=== PATIENT | male | born 1945 | race Caucasian/White ===

== ENCOUNTER → 2016-09-17 | Day surgery (SDC) | payer MEDICARE, OTHER | END | disposition home or self-care (01) | LOC: FAS 07:38 | DX: M23.221 Derangement of posterior horn of medial meniscus due to old tear or injury, right knee (principal); M23.261 Derangement of other lateral meniscus due to old tear or injury, right knee; M25.861 Other specified joint disorders, right knee; M17.11 Unilateral primary osteoarthritis, right knee; M79.4 Hypertrophy of (infrapatellar) fat pad; I10 Essential (primary) hypertension; K21.9 Gastro-esophageal reflux disease without esophagitis; M10.9 Gout, unspecified; Z79.82 Long term (current) use of aspirin; Z79.1 Long term (current) use of non-steroidal anti-inflammatories (NSAID); Z79.899 Other long term (current) drug therapy; Z98.890 Other specified postprocedural states | CPT/HCPCS: J1100; J2405; J2704; J3010; J7325 ==

== ENCOUNTER 2021-11-25 18:40 | Emergency (ER) | payer MEDICARE, OTHER ==
[~2021-11-25 18:40] MED LIST: ALLOPURINOL100 MG PO; ASPIRIN CHEWABL81 MG PO; ASPIRIN EC81 MG PO; BIOFLEX TABLET1 EACH PO; GREEN TEA CAPL1 EACH PO; LISINOPRIL-HCT1 EAC2 PO; PERCOCET 5-3251 EACH PO; PREDNISONE 20MG20 MG PO; TRAMADOL HCL50 MG PO; ULTRAM50 MG PO; VITAMIN D31000 UNIT PO; VOLTAREN **OUT75 MG PO; ZESTORETIC 20-1 EACH PO
[2021-11-25 19:11] LABS: HCT 45.7 % (42.0-52.0); LYMPHOCYTE 47.7 % (15-48); MCH 29.6 pg (25.0-31.0); MCHC 32.8 g/dL (32.0-36.0); MCV 90.1 fL (78.0-100.0); MONOCYTE 7.3 % (0-12); MPV 10.6 fL (6.0-9.5); NEUTROPHIL 39.6 % (41-80); NRBC 0; PLT 205 K/uL (150-400); RBC 5.07 M/uL (4.70-6.00); RDW 13.4 % (11.5-14.0); WBC 8.1 K/uL (4.0-10.5)
[2021-11-25 19:31] LABS: BILIRUBIN - TOTAL 0.5 mg/dL (0.2-1.0); BUN/CREAT RATIO (CALC) 19.5 RATIO; CREATININE 1.13 mg/dL (0.67-1.17); GLOBULIN (CALCULATION) 4.2 g/dL; POTASSIUM 4.2 mmol/L (3.5-5.1); TOTAL PROTEIN 8.2 g/dL (6.4-8.2)
[2021-11-25 19:54] LABS: CORONAVIRUS 2019 SARS-COV-2 NEGATIVE (NEGATIVE); INFLUENZA A NAA NEGATIVE (NEGATIVE)
== END 2021-11-25 22:05 | disposition home or self-care (01) ==
LOC: FER 18:40
PROVIDERS: Emergency Medicine
DX: R00.2 Palpitations (principal); I10 Essential (primary) hypertension; Z79.02 Long term (current) use of antithrombotics/antiplatelets; Z79.82 Long term (current) use of aspirin; Z79.899 Other long term (current) drug therapy; Z20.822 Contact with and (suspected) exposure to COVID-19
CPT/HCPCS: 36415; 71045; 80053; 83880; 84439; 84443; 84484; 85025; 93005; U0002